=== PATIENT | female | born 1965 | race Caucasian/White ===

== ENCOUNTER 2017-12-07 11:49 | Emergency (ER) | payer OTHER, MEDICAID ==
[~2017-12-07] VITALS: Ht 162.6 cm; Wt 106.6 kg
[2017-12-07] MEDS ORDERED: SYNTHROID112 MC1 PO (12:20)
[2017-12-07] MEDS ORDERED: LEXAPRO20 MG PO (12:21)
[2017-12-07] MEDS ORDERED: KAPSPARGO SPRIN25 MG PO (12:22)
[2017-12-07] MEDS ORDERED: LYRICA100 MG PO (12:22)
[2017-12-07] MEDS ORDERED: LIORESAL 10 MG10 MG PO (12:23)
[2017-12-07] MEDS ORDERED: TRAMADOL 50 MG50 MG PO (12:24)
[2017-12-07] MEDS ORDERED: KLONOPIN0.5 MG PO (12:24)
[2017-12-07 12:51] VITALS: BP 108/72
== END 2017-12-07 12:51 | disposition home or self-care (01) ==
LOC: M.ERS 11:49
DX: G89.29 Other chronic pain (principal); M54.5 Low back pain; E03.9 Hypothyroidism, unspecified; F32.9 Major depressive disorder, single episode, unspecified; M19.90 Unspecified osteoarthritis, unspecified site; F17.210 Nicotine dependence, cigarettes, uncomplicated; Z88.6 Allergy status to analgesic agent; Z88.8 Allergy status to other drugs, medicaments and biological substances; Z90.49 Acquired absence of other specified parts of digestive tract; Z90.710 Acquired absence of both cervix and uterus